=== PATIENT | female | born 1950 | race Caucasian/White ===

== ENCOUNTER 2022-11-26 17:55 | Emergency (ER) | payer OTHER ==
[~2022-11-26] VITALS: Ht 162.6 cm; Wt 68.0 kg
--- NOTE | 2022-11-26 18:20 | NUR ---
Patient AOx4 able to express her concerns. Patient states son gave her a juice with an additive "not sure if CBD" and after that extremeties were weak and she felt dizzy. Discussed plan of care, patient verbalized agreement. All safety precautions taken.
[2022-11-26] MEDS ORDERED: IV NS 0.9% 1,000 ML BAG IV ONE (18:30)
[2022-11-26] MEDS ORDERED: ACETAMINOPHEN 325 MG TABLET PO ONE (18:30)
[2022-11-26] MEDS ORDERED: MECLIZINE HCL 12.5 MG TABLET PO ONE (18:30)
[2022-11-26 18:36] LABS: BASOPHILS % (AUTO) 0.8 % (0.0-2.0); EOSINOPHILS % (AUTO) 1.3 % (0.0-6.0); HEMATOCRIT 44 % (33-45); HEMOGLOBIN 14.2 g/dL (11.5-14.8); LYMPHOCYTES # (AUTO) 2.2 K/uL (0.8-4.8); LYMPHOCYTES % (AUTO) 39.2 % (20.0-44.0); MEAN CORPUSCULAR HGB CONC 32 g/dl (31.0-36.0); MEAN CORPUSCULAR VOLUME 90 fL (82-100); MONOCYTES # (AUTO) 0.3 K/uL (0.1-1.30); NEUTROPHILS # (AUTO) 3.1 K/uL (1.8-8.9); NEUTROPHILS % (AUTO) 53.7 % (43.0-81.0); PLATELET COUNT (AUTO) 205 K/uL (150-450); RED BLOOD CELL COUNT(AUTO) 4.87 MIL/uL (4.0-5.2); WHITE BLOOD COUNT (AUTO) 5.7 K/uL (4.3-11.0)
[2022-11-26 18:49] LABS: CALCIUM, SERUM 9.1 mg/dL (8.5-10.1); CREATININE 0.6 mg/dL (0.6-1.3); POTASSIUM 4.7 mmol/L (3.5-5.1)
[2022-11-26] MEDS ORDERED: MECLIZINE HCL 12.5 MG TABLET ONE (18:53)
[2022-11-26] MEDS ORDERED: ACETAMINOPHEN 325 MG TABLET ONE (18:53)
[2022-11-26] MEDS ORDERED: MECL-159 PO (22:42)
--- NOTE | 2022-11-26 22:54 | NUR ---
Patient discharged to home in stable condition. Written and verbal after care instructions given. Patient verbalizes understanding of instruction.
[2022-11-26 22:55] VITALS: BP 139/72
== END 2022-11-26 22:56 | disposition home or self-care (01) ==
LOC: ER 18:55
DX: K11.7 Disturbances of salivary secretion (principal); R42 Dizziness and giddiness; E11.65 Type 2 diabetes mellitus with hyperglycemia; R51.9 Headache, unspecified; I10 Essential (primary) hypertension; E78.5 Hyperlipidemia, unspecified
CPT/HCPCS: 99284; 70450; 93005; 85025; 80048; 36415; J8597; J7030